=== PATIENT | female | born 1995 | race Caucasian/White ===

== ENCOUNTER 2018-04-03 06:04 | Emergency (ER) | payer MEDICAID ==
[2018-04-03 06:40] VITALS: BP 114/71
--- NOTE | 2018-04-03 06:40 | EDPHY ---
H & P Stated Complaint: abd pain for 3 days with nausea Time Seen by Provider: 04/03/18 06:37 - Personal History LMP (Females 10-55): Unknown Current Tetanus/Diphtheria Vaccine: Yes Current Tetanus Diphtheria and Acellular Pertussis (TDAP): Yes - Medical/Surgical History Hx Asthma: No Hx Chronic Respiratory Disease: No Hx Diabetes: Yes Hx Cardiac Disease: No Hx Renal Disease: No Hx Cirrhosis: No Hx Alcoholism: No Hx HIV/AIDS: No Hx Splenectomy or Spleen Trauma: No Other PMH: DM, left hand surgery - Social History Smoking Status: Current every day smoker Constitutional: Initial Vital Signs Temperature (C) 36.6 C 04/03/18 06:09 Heart Rate 109 H 04/03/18 06:09 Respiratory Rate 16 04/03/18 06:09 Blood Pressure 111/75 04/03/18 06:09 O2 Sat (%) 97 04/03/18 06:09 O2 Delivery Mode Room Air Allergies/Adverse Reactions: acetaminophen [From Tylenol] Allergy (Verified 04/03/18 06:11) aspirin Allergy (Verified 04/03/18 06:11) peanut Allergy (Verified 04/03/18 06:11) Home Medications: Medication Instructions Recorded Unobtainable 04/03/18 Medical Decision Making ED Course/Re-evaluation: CHIEF COMPLAINT: Abdominal pain for 3 days HISTORY OF PRESENT ILLNESS: This is a 22-year-old female who is a type 1 diabetic. Before my arrival Dr. Sudhakar Umanzor attempted to speak to her and evaluate her but she would not speak to anyone. I tried to evaluate her just now approximately [address] Umanzor and the nurse informs me that she still wants speak to her. She did respond to me slightly by nodding her head yes and now. She is alert and oriented. She is lying in the position. I asked if she had been taking her insulin and she said yes. But she really has not said any more than that at this time. She did agree to allow us to put an IV and draw some labs. REVIEW OF SYSTEMS: A 10 point review of systems was performed and is negative with the exception of the elements mentioned in the history of present illness. PHYSICAL EXAM: Currently in position and will not allow me to examine her. HR, BP, O2 Sat, RR. Temp noted General Appearance: Alert, well hydrated, and non-toxic appearing. Head: Atraumatic without obvious injury Eyes: Pupils equal, round, reactive to light and accommodation, EOMI, no trauma , no injection. Nose: Atraumatic. Throat: Mucus membranes moist. Respiratory: No retractions, no distress, no wheezes, and no accessory muscle use. Cardiovascular: Regular rate and rhythm. Good capillary refill. Gastrointestinal: Patient will not allow me to assess. Musculoskeletal: Normal active ROM of all extremities, atraumatic as far as I can see. Neurological: Alert and oriented. Nonfocal neuro exam. Skin: No rashes. Past medical history: Type 1 diabetic Past surgical history: Shakes her head no when I ask if she has had prior surgeries Family history: Patient will not respond Social history: Patient will not respond DIFFERENTIAL DIAGNOSIS: The differential diagnosis for the patient's abdominal pain included but was not limited to ovarian cyst, pelvic inflammatory disease, ovarian torsion, urinary tract infection, ectopic , cholecystitis, and appendicitis. MEDICAL DECISION MAKING: At this point although the patient will not let me examine her she at least seems to have abdominal pain. I have no idea at this time if she has any peritoneal signs she is lying in a position will not move or on curl her body for me to push on her belly. She did allow us to start an IV. I will obtain an i-STAT to make sure her blood sugar is reasonable. In addition I will obtain other laboratory studies including urinalysis. Hopefully she will allow me to examine her psych and decide on the utility of imaging. 7:12 Attempted to reassess patient. Staff were unable to place an IV and the patient is refusing further interventions. She remains in the position with her arm over her face and does not respond to my questions. 7:20 The patient has left the emergency department without further treatment or evaluation. See nurses note for details. Departure - Departure Disposition: Against Medical Advice Clinical Impression: Possible abdominal pain Condition: Good Referrals: [facility] [Other] - As per Instructions Report Scribed for: Jian Flowers Report Scribed by: Vannessa Pelaez Date of Report: 04/03/18 Time of Report: 07:08
[2018-04-03] MEDS ORDERED: NS 1,000 ML IV ONE (06:53)
== END 2018-04-03 07:30 | disposition left against medical advice (07) ==
DX: Z03.89 Encounter for observation for other suspected diseases and conditions ruled out (principal); E10.9 Type 1 diabetes mellitus without complications; F17.200 Nicotine dependence, unspecified, uncomplicated; Z91.010 Allergy to peanuts